=== PATIENT | female | born 1965 ===

== ENCOUNTER 2021-01-21 08:01 | Outpatient (CLI) | payer OTHER, SELFPAY | END 2021-01-21 08:02 | disposition home or self-care (01) | PROVIDERS: Visit Provider Nurse Practitioner Family | DX: H91.93 Unspecified hearing loss, bilateral (principal) | CPT/HCPCS: 92557; 92567; 92587 ==

== ENCOUNTER 2021-02-02 08:06 | Outpatient (CLI) | payer OTHER, SELFPAY | END 2021-02-02 08:07 | disposition home or self-care (01) | LOC: ANHBWCAUD 08:07 | PROVIDERS: Visit Provider Nurse Practitioner Family | DX: H91.93 Unspecified hearing loss, bilateral (principal) | CPT/HCPCS: 92553; 92555 ==